=== PATIENT | male | born 1940 | race Caucasian/White ===

== ENCOUNTER → 2017-05-14 | Day surgery (SDC) | payer MEDICARE, BC ==
[~2017-05-14] MED LIST: ACETAMINOPHEN PO; ASPIRIN EC81 M1 PO; ASPIRIN325 M1 PO; ASPIRIN81 M1 PO; ASPIRIN81 MG PO; ASPIRINEC; ATENOLOL50 MG PO; CARBIDOPA-LEVO1 EAC3 PO; CLOPIDOGREL75 MG PO; CRESTOR10 MG PO; CRESTOR40 MG PO; DEXILANT PO; DITROPAN5 MG PO; FAMOTIDINE20 M1 PO; FISH OIL 1,001000 MG PO; FLEXERIL10 MG PO; GLUCOPHAGE500 MG PO; HYTRIN2 M1 PO; LIPITOR; LORTAB 7.5-5001 TAB PO; MEDI-MECLIZINE25 M1 PO; METFORMIN PO; METOPROLOL SUCC50 MG PO; NITROSTAT0.4 MG SL; NORVASC; NORVASC PO; OMEPRAZOLE40 M1 PO; PAROXETINE HCL10 MG PO; PERCOCET5/325 PO; PHENERGAN PO; PHENERGAN25 MG PO; PLAVIX PO; PREVACID PO; PRILOSEC PO; PROTONIX PO; TOPROL XL; TOPROL XL50 MG PO; TYLENOL325 M1 PO; VICODIN 5/500 T1 TAB PO; VICODIN ES 7.51 EAC1 PO; WELCHOL3.75 GM PO; WELCHOL625 MG PO; ZYRTEC10 M1 PO; [UNRECOGNIZED DRUG - OTHER]
--- NOTE | ~2017-05-14 | OR ---
Unit #: [id number] #: [id number] Patient: GERMAN ALEJO [id number] [address] [place], [place] [address] [id number] MR#: [id number] NAME: GERMAN ALEJO ROOM: Date of Procedure: 05/14/2017 Admission Date: 05/14/2017 Surgeon: Kevin Perez M.D. : 1940 Attending Physician: Kevin Perez M.D. Primary Care Physician: Panda Alan M.D. OPERATIVE REPORT PRIMARY CARE PHYSICIAN Panda Alan M.D. PREOPERATIVE DIAGNOSES Malfunctioning PEG tube. The patient has presented with history of upper gastrointestinal bleeding from the PEG site. PROCEDURES PERFORMED Upper gastrointestinal endoscopy and endoscopic removal of the PEG tube and replaced with a new 24-Bel[place]ian PEG tube. RECOMMENDATIONS Please use the new PEG tube for feeding and medications as needed. SEDATION USED MAC. DESCRIPTION OF PROCEDURE Following detailed explanation of potential risks and complications of an upper endoscopy, namely perforation, bleeding, and complication related to sedation, the patient was brought to GI lab and laid in the supine position with the head of the bed elevated. Sedation using MAC was given. Lubricated tip of the Olympus video upper endoscope was passed through the bite block into the proximal esophagus under direct vision. The entire esophageal mucosa was examined and appeared normal. Z-line was nicely demarcated, there being no esophagitis or hiatus hernia. The scope was then advanced into the gastric cavity and the latter was insufflated. Mucosa of the fundus, body, and antrum was examined. 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 The mushroom was very tightly compressing the gastric mucosa from the gastric side with a tight securing device outside. The PEG tube was loosened and the PEG mushroom was grasped using a polypectomy snare. The tube was then removed endoscopically. Through the matured gastrocutaneous fistula, a new 24-Belarusian replacement tube was placed and balloon was inflated. The position of the inner balloon was documented endoscopically. The prepyloric antral area appeared normal. Pylorus was intubated with visualization of the normal duodenal bulb and second and third part of the duodenum. Upon withdrawal and retroflexion; incisura, cardia, and greater curve was examined and no additional findings were noted. The scope was withdrawn in the distal esophagus. Entire esophageal mucosa was examined all the way up to pharynx. No additional findings were noted. The patient tolerated the procedure without any postprocedure complications. Unit #: [id number] #: [id number] Patient: GERMAN ALEJO Dictated by... Negrito Mann/ward TD: 05/14/2017 15:46 JOB #: [id number] OPERATIVE REPORT Page 1 of 1 X Kevin Perez MD X PROCEDURE OPERATIVE NOTE
== END | disposition home or self-care (01) ==
LOC: COPS 12:06
DX: K94.23 Gastrostomy malfunction (principal); G20 Parkinson's disease; N40.0 Benign prostatic hyperplasia without lower urinary tract symptoms; E11.9 Type 2 diabetes mellitus without complications; M19.90 Unspecified osteoarthritis, unspecified site; E78.5 Hyperlipidemia, unspecified; I25.2 Old myocardial infarction; I25.10 Atherosclerotic heart disease of native coronary artery without angina pectoris; Z79.01 Long term (current) use of anticoagulants; Z86.010 Personal history of colon polyps; Z88.8 Allergy status to other drugs, medicaments and biological substances; Z79.82 Long term (current) use of aspirin; Z79.899 Other long term (current) drug therapy; Z79.84 Long term (current) use of oral hypoglycemic drugs; Z90.49 Acquired absence of other specified parts of digestive tract; Z95.5 Presence of coronary angioplasty implant and graft; Z95.1 Presence of aortocoronary bypass graft; Z98.890 Other specified postprocedural states
CPT/HCPCS: 82947